=== PATIENT | female | born 1955 | race Hispanic/Latino ===

== ENCOUNTER 2017-02-19 08:40 | Inpatient (IN) | payer MEDICARE ==
[2017-02-19] VITALS (9 sets, daily range): BP systolic 117–145; BP diastolic 54–77; PULSE 74–95; RESP 12–18; O2SAT 93–99
[~2017-02-19] VITALS: Ht 152.4 cm; Wt 92.6 kg
[2017-02-19] MEDS: Lactated Ringer's 1,000 ML IV SCH ×3 (05:00→10:18)
[2017-02-19] MEDS: Vancomycin Inj 1,500 MG in 0.9% Sodium Chloride 500 ML IV SCH ×3 (06:00→09:15)
[2017-02-19] MEDS: CeFAZolin 2 Gm/50 mL D5W IV Premix IV SCH ×2 (06:00→11:00)
[~2017-02-19 08:40] MED LIST: ACET325T51 PO; ASPI325T32 PO; BUPR300T52 PO; Bupivacaine Liposome 1.3% 20 mL Inj INFILTRATE SCH; CHOL10008 PO; CITA20TA11 PO; ESTR42.52 VG; FERR-83 PO; GABA-502 PO; IBUP-1827 PO; INSLIS SUBQ; INSU100V7 SUBQ; KRIL500C PO; LEVO150T5 PO; LEVO175T5 PO; LISI40TA PO; METF1000 PO; PRV40T PO
[2017-02-19] MEDS ORDERED: Dexamethasone 4 mg/mL Inj IVPUSH PRN (09:55)
[2017-02-19] MEDS ORDERED: Lactated Ringer's 1,000 ML IV SCH (09:55)
[2017-02-19] MEDS ORDERED: MetoCLOpramide 5 mg/mL 2 mL Inj IVPUSH PRN (09:55)
[2017-02-19] MEDS ORDERED: Atropine 0.4 mg/mL Inj IVPUSH PRN (09:55)
[2017-02-19] MEDS ORDERED: Ondansetron 2 mg/mL 2 mL Inj IVPUSH PRN ×2 (09:55→12:55)
[2017-02-19] MEDS ORDERED: EPHEDrine Sulfate 50 mg/mL Inj IVPUSH PRN (09:55)
[2017-02-19] MEDS ORDERED: Labetalol 5 mg/mL 4 mL Inj IV PRN (09:55)
[2017-02-19] MEDS ORDERED: Lactated Ringer's 500 ML IV PRN (09:55)
[2017-02-19] MEDS ORDERED: Phenylephrine 10,000 mCg/mL Inj IVPUSH PRN (09:55)
--- NOTE | 2017-02-19 09:55 | PCM.HPANE ---
Patient Data Date of Service: Feb 19, 2017 Surgeon Admitting Provider: Attending Provider:Pierre Marcum DO Primary Care Physician:Mali Gipson Other Provider:Don Croft Anesthesia Reason for Visit Right Knee Arthritis Ht/WT & BMI Height (Feet): 5 Height (Inches): 0.00 Weight (Kilograms): 92.6 Body Mass Index 40.00 Allergies Coded Allergies: gemfibrozil (Verified Allergy, Severe, Rash, 02/11/17) simvastatin (Verified Allergy, Unknown, 02/11/17) Past Anesthesia History Anesthesia History: Denies:: Abnormal Airway, Anesthesia Reactions, Difficult Intubation, Fam Anesthesia Reaction, Fam Malignant Hypertherm, Malignant Hyperthermia Diabetes History Hx Diabetes?: Yes Type of Diabetes: Type II Glycemic Control: Insulin & Oral Medication Current Bedside Blood Glucose: 120 MRSA MRSA: No Medications Blood Thinner: Aspirin Hypertension Medication: Yes Home Meds Incl Beta Maria Elena: No Reported Medications Cholecalciferol (Vitamin D3) (Vitamin D3)1,000 Unit Tab.chew1,000 Unit PO DAILY 02/11/17 Pravastatin (Pravachol)40 Mg Cmkkkx58 Mg PO HS Ref 0 02/11/17 Metformin (Glucophage)1,000 Mg Tablet1,000 Mg PO BID Ref 0 02/11/17 Lisinopril 40 Mg Ooagsp14 Mg PO DAILY 30 Days Ref 0 02/11/17 Levothyroxine 175 Mcg Yqneiu730 Mcg PO saturday Ref 0 02/11/17 Levothyroxine 150 Mcg Ipwvbi216 Mcg PO mon thru sat Ref 0 02/11/17 Insulin Glargine (Lantus U100 Insulin Vial)100 Unit/Ml Vial35 Unit SUBQ BID #1 VIAL Ref 0 02/11/17 Krill Oil 500 Mg Tzktvfy087 Mg PO BID 02/11/17 Ibuprofen 600 Mg Zeeimk920 Mg PO TID PRN For Pain Ref 0 02/11/17 Insulin Human Lispro (HumaLOG U100 Insulin Vial)100 Unit/Ml Unit5-15 Unit SUBQ DIRECTED PRN blood sugar sliding scale #1 VIAL Ref 0 Check blood sugars before meals and at bedtime. Use correction factor only before meals. Blood Sugar Lispro Correction: <151, 0 units; 151-175, 1 unit; 176-200, 2 units; 201-225, 3 units; 226-250, 4 units; 251-275, 5 units; 276-300, 6 units; 301-325, 7 units; 326-350, 8 units; 351-375, 9 units; 376-400, 10 units; >400, 12 units. 02/11/17 Gabapentin 300 Mg Tonsacx382 Mg PO BID Ref 0 02/11/17 Ferrous Sulfate 325 Mg Buqdug973 Mg PO DAILY 30 Days Ref 0 02/11/17 Estradiol (Estrace)42.5 Gm Cream.appl1 G VG 2xweekly #1 TUBE Ref 0 02/11/17 Citalopram 20 Mg Qzzkwf25 Mg PO DAILY Ref 0 02/11/17 Bupropion ER 300 Mg Tab.er.60c606 Mg PO DAILY Ref 0 02/11/17 Aspirin 325 Mg Suhpiv351 Mg PO DAILY #1 BOTTLE 02/11/17 Acetaminophen 325 Mg Cauchx249 Mg PO Q4H PRN For Fever Ref 0 02/11/17 History History of ENT Problems?: No HEENT History: Denies:: Abnormal Airway Cataracts Difficult Intubation Dysphagia Glaucoma Hearing Problem Sinus Problem TMJ Denture Type: None Teeth Condition: Within Normal Limits Hx of Heart Problems?: Yes Cardiovascular History: Positive for:: Edema Hypertension Denies:: AICD Atrial Fibrillation Chest Pain Pacemaker Valvular Heart Disease Hx of Respiratory Problem?: Yes Respiratory History: Positive for:: Use of C-PAP Machine Denies:: Asthma COPD Cough Hemoptysis Oxygen Administration Pneumonia Tuberculosis Hx Neurologic Problems?: No Neurological History: Denies:: CVA Dementia Headaches Multiple Sclerosis Parkinson's Disease Seizures Hx of GI Problems?: Yes Other GI Pertinent History: hx of lap band Hx of Problems?: Yes Genitourinary History: Positive for:: Kidney Stones (one stone, passed spontaneously ) Denies:: Urinary Tract Infection Female Hx: Denies:: Currently (hysterectomy) Problems with Breasts? Skin History: Denies:: History Skin Disorders? Pressure Ulcers Hx Musculoskeletal Problems?: No Musculoskeletal History: Positive for:: Back Injury (lami hx) Degenerative Joint Osteoarthritis Denies:: Fibromyalgia Joint Replacement Systemic Lupus Hx of Psycho/Social Problems?: No Psycho Social History: Positive for:: Anxiety Denies:: Hx Depression Hx Surgeries?: Yes (HYSTERECTOMY,D&C'S,REPAIR LACERATION OF DOG BITE) Hx Any Other Health Problems?: Yes Other History: Positive for:: Endocrine Disease Thyroid Disease Denies:: Cancer Hospitalization History Blood Transfusions: Positive for:: Accept Blood Products? Denies:: Blood Transfusions Hx Diabetes: YesBedside Blood Glucose: 120 Hx Alcohol Use: YesAlcoholic Drinks Per Day: one drink weeklyHx Substance Use : Yes (topical marijuana oil for pain, rarely) Smoking Status: Former Smoker Have You Smoked inLast 12 mo: No Stop/Bang Treated for Sleep Apnea?: Yes Do You Have a CPAP Machine?: Yes S-Snoring: Do You Snore Loudly: No T-Tired: feel tired, fatigued: No O-Obsered: Observed not breath: No P-Blood Pressure: treated: Yes B- Body Mass Index > 35 kg/m2: Yes A- Age over 50: Yes N- Neck Large Circumference: Yes G- Gender Male: No JODY Total Score: 4 Risk Assessment Category Category 1A: Patient has history of documented sleep apnea, and HAS NOT received any narcotic, sedative or anesthesia administration during this stay. Category 1B: Patient has history of documented sleep apnea, and HAS received any narcotic , sedative or anesthesia administration during this stay Category 2: Patient has SUSPECTED Obstructive Sleep Apnea, and HAS received any narcotic , sedative or anesthesia administration during this stay. Category 3: Patient has SUSPECTED Obstructive Sleep Apnea and HAS NOT received narcotic, sedative or anesthesia administration during this stay. Category 4: Outpatient in Procedural Areas with known sleep apnea or who screen positive for High Risk via the STOP/BANG questionnaire. Exam Exam Vital Signs Vital Signs Date Time Temp Pulse Resp B/P Pulse Ox O2 Delivery O2 Flow Rate FiO2 02/19/17 09:10 CPAP/BIPAP 02/19/17 09:10 36.5 74 18 117/54 99 Room Air General Appearance: Alert, Oriented X3, Cooperative, No Acute Distress HEENT/AIRWAY: MP 3 Lungs: Normal Air Movement Heart: Exam Unremarkable Meds/Labs/Diagnostics Admission Meds Current Medications Lactated Ringer's 1,000 ml @ 120 mls/hr Q8H20M IV Last administered on 08:45; Start 02/19/17 at 05:00; Stop 02/19/17 at 13:19 Vancomycin HCl/ Sodium Chloride (Vancocin Inj/ Normal Saline) 500 ml @ 333.333 mls/hr PREOP IV Last administered on 02/19/17 09:14; Start 02/19/17 at 06:00; Stop 02/19/17 at 17:00 Bedside Blood Glucose: 120 Plan Impression Patient chart reviewed, patient interviewed and anesthestic plan with risks, benefits, and alternatives discussed, and informed consent obtained. NPO per Anesth. Guidelines: Yes ASA Physical Status: ASA2 Mod Systemic Disease Anesthetic Plan: Regional Block, SAB Bene/Risks/Altern/Consents: Yes HP Complete Prior to Induction: Yes Osman Chapman MD Feb 19, 2017 09:55
[2017-02-19] MEDS ORDERED: 0.9% Sodium Chloride 10 mL Inj INFILTRATE ONE (11:26)
[2017-02-19] MEDS ORDERED: Bupivacaine Liposome 1.3% 20 mL Inj INFILTRATE ONE (11:26)
[2017-02-19] MEDS ORDERED: Bupivacaine-MPF 0.5% W/EPI 30 mL Inj INFILTRATE ONE (11:26)
[2017-02-19] MEDS ORDERED: Glucose 40% Oral Gel 15 Gm Tube PO PRN (12:55)
[2017-02-19] MEDS ORDERED: diphenhydrAMINE 25 mg Capsule PO PRN (12:55)
[2017-02-19] MEDS ORDERED: Magnesium Hydroxide 10 mL Oral Concentration PO PRN (12:55)
[2017-02-19] MEDS ORDERED: HYDROmorphone 0.5 mg/0.5 mL iSecure Syringe IVPUSH PRN (12:55)
[2017-02-19] MEDS ORDERED: Polyethylene Glycol (PEG) 17 Gm Powder PO PRN (12:55)
[2017-02-19] MEDS ORDERED: hydrOXYzine Pamoate 25 mg Capsule PO PRN (12:55)
[2017-02-19] MEDS ORDERED: Sodium Biphos-Phos 133 mL Enema RECTAL PRN (12:55)
--- NOTE | 2017-02-19 12:55 | PCM.ANEP1 ---
Post Anesthesia PACU Phase 1 Assessment Date of Service: Feb 19, 2017 Vital Signs Vital Signs Date Time Temp Pulse Resp B/P Pulse Ox O2 Delivery O2 Flow Rate FiO2 02/19/17 09:10 CPAP/BIPAP 02/19/17 09:10 36.5 74 18 117/54 99 Room Air Anesthetic Administered: GA, Regional Block Level of Alertness: Awake, talking OLSON's with Equal Strength: Yes Pain: Yes Pain Scale Score: 3 Nausea or Vomiting: No CV Function & Hydration Stable: Yes Airway Device: Oxygen Delivery: Simple Mask Lungs: Normal Air Movement PACU Phase 2 Assessment Complications: No Follow up Care: N/A Patient Instructions Provided: N/A Osman Chapman MD Feb 19, 2017 12:55
[2017-02-19] MEDS: fentaNYL-PF 50 mCg/mL 2 mL Inj IVPUSH PRN ×2 (13:00→13:20)
[2017-02-19] MEDS: HYDROmorphone 1 mg/mL Inj IVPUSH PRN ×2 (13:00→13:20)
--- NOTE | 2017-02-19 13:49 | DRSVH ---
PROCEDURE: X-RAY RIGHT KNEE, ONE OR TWO VIEWS ([id number]) INDICATIONS: s/p right TKA TECHNIQUE: 2 view(s) of the knee acquired. COMPARISON: None. FINDINGS: Bones: Patient is status post knee joint arthroplasty. Hardware components are in expected position s. Visualized bony structures are intact. Soft tissues: Overlying postoperative changes are noted. IMPRESSION: Expected postoperative alignment Dictated by: Rocky Ortiz M.D. on 02/19/2017 at 13:47 Approved by: Rocky Ortiz M.D. on 02/19/2017 at 13:48
[2017-02-19] MEDS ORDERED: Propofol 10,000 mCg/mL 20 mL Inj ONE (14:30)
[2017-02-19] MEDS ORDERED: Ondansetron 2 mg/mL 2 mL Inj ONE (14:30)
[2017-02-19] MEDS ORDERED: EPHEDrine/NS 5 mg/mL 5 mL Syringe ONE (14:30)
[2017-02-19] MEDS ORDERED: fentaNYL-PF 50 mCg/mL 2 mL Inj ONE (14:30)
[2017-02-19] MEDS: 0.9% Sodium Chloride 1,000 ML IV SCH (15:17)
--- NOTE | 2017-02-19 16:01 | NUR ---
Evaluation completed. Please go to "Notes" then click on "Assessments and Notes" (bottom left corner of screen). Then select appropriate discipline tab on top of screen.
[2017-02-19] MEDS: Sodium Chloride LOK Flush 10 mL Syringe IV SCH (16:30)
[2017-02-19] MEDS: Acetaminophen IV 1,000 MG in IV Premix 1 EACH IV SCH (17:42)
[2017-02-19] MEDS: CeFAZolin Inj 2 GM in IV Premix 1 EACH IV SCH (18:06)
--- NOTE | 2017-02-19 19:16 | NUR ---
POST -OP Patient arrived to [facility] at 1430, from OR where she had right TKA. Cooper wrap c/d/i, no drain. Love catheter, NS 80, LOC x3, PT in to work with patient. Pain controlled with IVP Dilaudid 0.5 x1, Toradol 15mg x1 and IV Tylenol. Post op antibiotic given, BG 216, VSS, and Love to be removed today.
[2017-02-19] MEDS ORDERED: Non-Formulary Medication (Levothyroxine 175 MCG) PO SCH (19:25)
--- NOTE | 2017-02-19 19:33 | OP ---
[address] [address] OPERATIVE REPORT PATIENT: RO MCDONALD : 1955 MR#: [id number] ADMIT: 02/19/2017 JOB ID: [id number] DATE OF SURGERY: 02/19/2017 SURGEON: Pierre Marcum DO FILM OR VIDEOTAPE EDITOR: Tati Blackmon PA-C PREOPERATIVE DIAGNOSIS(ES): Right knee degenerative joint disease. POSTOPERATIVE DIAGNOSIS(ES): Right knee degenerative joint disease. PROCEDURE: Right total knee arthroplasty. INDICATIONS: The patient is a 61-year-old female with right knee severe degenerative arthritis who has failed conservative measures and wished to proceed with a right total knee arthroplasty. We discussed the risks, benefits, and possible complications of surgery. All questions were answered. She wished to proceed. A neurosurgical nurse practitioner was required for the successful completion of this procedure. PROCEDURE IN DETAIL: The patient is brought to the operating room. She was given a preoperative antibiotic, 1 g of TXA, and adductor canal block. The right lower extremity was sterilely prepped and draped and an incision was made over the anteromedial knee. Dissection was carefully carried through subcutaneous tissue. Electrocautery was used for hemostasis as well as the tourniquet. A split was then made in the quad tendon leaving a cuff of tissue for repair. This was taken along the medial retinaculum. The patella was everted and the femur was instrumented with an intramedullary cornel, and the distal femoral cutting block was placed with a 5 degree distal valgus cut angle and 10 mm distal femoral resection planned. The cut was performed and the tibia was then addressed with the extramedullary tibial cutting guide placed parallel to the long axis of the tibia. This was pinned into position and the cut was performed and completed with an osteotome. The tibia was sized and felt to be a size 3. The femur was sized and felt to be a size 4, and the femoral cuts were then performed with 3 degrees of external rotation. The box cut was then performed of the knee was then trialed with various polys. Eventually the size 8 poly seemed to work quite nicely, allowing full flexion and full extension with equal gaps medially and laterally. The patella was resurfaced with a free hand type technique, cut from initial thickness of 22 to a thickness of 14. A 32 mm patellar button was chosen, drilled for trial and had excellent tracking. The femur was drilled. The tibia was drilled and punched. The bony surfaces were washed and dried, and the components were then cemented into position beginning with the DePuy Attune fixed bearing 3 tibia followed by the DePuy Attune posterior stabilized 4 femur, the 32 mm patellar button, and an 8 mm poly was inserted. All excess cement was removed. The leg was held in full extension while the cement was allowed to polymerize. The tourniquet was then let down and the wound was irrigated and then closed with #1 Surgilon to repair the quad tendon and medial retinaculum. The subcu was closed with 2-0 running V-Loc and the skin was closed with a running subcuticular 3-0 V-Loc. A mixture of Exparel, Marcaine and saline was added as an adjunct local anesthetic. Sterile dressings were applied. Patient tolerated the procedure well. Blood loss was 50 cc. POSTOPERATIVE PROTOCOL: Have the patient weightbear to tolerance. Use walker for ambulation. Will plan to use Lovenox for DVT prophylaxis.
[2017-02-19] MEDS ORDERED: Pt Own Med->Topical Med VAGINAL SCH (20:10)
[2017-02-19] MEDS: Senna-Docusate 8.6-50 mg Tablet PO SCH (20:19)
[2017-02-19] MEDS: HYDROcodone-APAP 5-325 mg Tablet PO PRN ×2 (20:21→22:09)
[2017-02-19] MEDS ORDERED: Non-Formulary Medication (Metformin (Glucophage) 1,000 MG) PO SCH (20:30)
[2017-02-19] MEDS: Insulin GLARgine 100 Unit/mL Syringe SUBQ SCH (21:51)
[2017-02-19] MEDS: Insulin LISPRO 300 Unit/3 mL Inj SUBQ PRN (21:59)
[2017-02-20] MEDS: Sodium Chloride LOK Flush 10 mL Syringe IV SCH ×3 (00:30→17:17)
[2017-02-20] MEDS: Acetaminophen IV 1,000 MG in IV Premix 1 EACH IV SCH ×4 (00:44→11:17)
[2017-02-20] MEDS: CeFAZolin Inj 2 GM in IV Premix 1 EACH IV SCH (00:45)
[2017-02-20] MEDS: 0.9% Sodium Chloride 1,000 ML IV SCH ×2 (01:21→13:51)
[2017-02-20] MEDS: HYDROcodone-APAP 5-325 mg Tablet PO PRN ×2 (02:56→08:11)
--- NOTE | 2017-02-20 03:49 | NUR ---
Pain management Patient c/o of pain, medication effective, at this time. Cooperative with care. RT assisted with CPAP. Bed in low position, call light within reach, intentional rounding. Care continues. Addendum: 02/20/17 at 0624 by EUNICE LOERA RN INSULIN According to patient Humalog coverage is as follows: 10 units base and an additional unit for every 20 mg/dl. For example a BS reading of 183 mg/dl would be the base 10 + 9 = 19 units of coverage.
[2017-02-20 05:55] LABS: BASOPHILS % (AUTO) 0.2 % (0-3); EOSINOPHILS % (AUTO) 0.3 % (0-5); MONOCYTES % (AUTO) 10.8 % (4-12); Mean Corpuscular Hemoglobin 26.6 pg (27.0-35.0); Mean Corpuscular Volume 80.5 fL (81-100); NEUTROPHILS % (AUTO) 68.5 % (40-74); Platelet Count 322 bil/L (150-400)
[2017-02-20 06:10] VITALS: BP 116/65; PULSE 97; O2SAT 97
[2017-02-20] MEDS ORDERED: buPROPion XL 300 mg ER24 Tablet PO SCH (08:30)
[2017-02-20] MEDS: Insulin LISPRO 300 Unit/3 mL Inj SUBQ PRN ×3 (09:13→18:39)
[2017-02-20] MEDS: Insulin GLARgine 100 Unit/mL Syringe SUBQ SCH ×2 (09:13→21:29)
[2017-02-20] MEDS: Senna-Docusate 8.6-50 mg Tablet PO SCH ×2 (09:14→21:19)
--- NOTE | 2017-02-20 09:39 | PCM.PNORTH ---
Subjective Date of Service: Feb 20, 2017 Visit Information: Reason for Visit Right Knee Arthritis Surgery/Surgery Date RIGHT TOTAL KNEE 02/19/17 Post-Op Day # 1 Date of Admission: Feb 19, 2017 at 14:29 Hospital Day # Subjective Patient complains of mild incisional pain. She feels that some of the block is still in place. She did get out of bed yesterday. Postop General: No Shortness of Breath, No Chest Pain, Good Appetite Objective Exam Objective Patient is seen in bed Vital Signs and I/O Vital Sign - Last Date Time Temp Pulse Resp B/P Pulse Ox O2 Delivery O2 Flow Rate FiO2 02/20/17 06:10 36.5 97 116/65 97 Room Air 02/19/17 23:56 0.00 02/19/17 13:30 15 Intake and Output 02/19/17 02/19/17 02/20/17 Cumulative From/Thru 15:00 23:00 07:00 02/11/17 16:39 - 02/20/17 06:39 Intake Total 1670 ml 950 ml 1884 ml 4504 ml Output Total 200 ml 600 ml 2100 ml 2900 ml Balance 1470 ml 350 ml -216 ml 1604 ml Intake Oral 950 ml 800 ml 1750 ml IV Total 1670 ml 1084 ml 2754 ml Output Urine Total 150 ml 600 ml 2100 ml 2850 ml Estimated Blood Loss 50 ml 50 ml # Bowel Movements 0 0 0 Lab & Micro Results Laboratory Tests Test 02/20/17 05:25 White Blood Count 13.1th/mm3 (3.8-10.1) Red Blood Count 4.06mil/mm3 (3.90-5.20) Hemoglobin 10.8g/dL (12.0-15.6) Hematocrit 32.7% (35.0-46.0) Mean Corpuscular Volume 80.5fL (81-100) Mean Corpuscular Hemoglobin 26.6pg (27.0-35.0) Mean Corpuscular Hemoglobin Concent 33.0% (32.0-37.0) Red Cell Distribution Width 14.9% (12.3-15.4) Platelet Count 322bil/L (150-400) Neutrophils (%) (Auto) 68.5% (40-74) Lymphocytes (%) (Auto) 19.8% (14-46) Monocytes (%) (Auto) 10.8% (4-12) Eosinophils (%) (Auto) 0.3% (0-5) Basophils (%) (Auto) 0.2% (0-3) Sodium Level 134mEq/L (134-144) Potassium Level 4.6mEq/L (3.5-5.2) Chloride Level 98mEq/L (97-108) Carbon Dioxide Level 22mmol/L (18-29) Blood Urea Nitrogen 14mg/dL (8-27) Creatinine 0.92mg/dL (0.57-1.00) Estimat Glomerular Filtration Rate 89mL/min (>59) Glucose Level 184mg/dL (60-99) Calcium Level 8.7mg/dL (8.5-10.1) Result Diagram: 02/20/1752402/20/17524 General Appearance: Alert, Oriented X3, Cooperative, No Acute Distress Extremities: Distal Pulses Palpable, No Compartment Syndrom Noted, Thigh & Calf Soft/Nontender Postop Sensory Motor: Distal Motor Intact, Distal Sensation Intact, NVI Distally SURGICAL WOUND : Wound Location/Description Surgical dressing is clean, dry and intact Activity: Activity per PT Catheters: None Assessment & Plan Impression POD #1 status post right TKA Problems: Plan Weightbearing: Weightbearing as tolerated with walker DVT prophylaxis: Lovenox 40 mg subcutaneous 2 weeks followed by aspirin 325 mg twice a day 4 weeks Physical therapy for transfers, progressive ambulation, therapeutic exercise Wound care: PA will change dressing on postop day 2 Discharge plan: Discharge home in 1-2 days. Start outpatient physical therapy next week Follow-up plan: In 2 weeks at [facility] with PA for wound check and at [address] Marcum with x-rays Pain Management: Toradol, Minter, Dilaudid IV VTE Prophylaxis: Sub-Q Enoxaparin, SCDs Resuscitation Status: CPR: Attempt Resuscitation Shallow WaterTati Garza PA-C Feb 20, 2017 09:39
[2017-02-20 09:50] VITALS: BP 111/68; PULSE 95; RESP 18; O2SAT 97
[2017-02-20] MEDS: buPROPion XL 300 mg ER24 Tablet PO SCH (11:17)
--- NOTE | 2017-02-20 15:41 | NUR ---
Social Work- Initial Assessment/ Readiness for Discharge/ Multidisciplinary Rounds Data: See Initial Assessment and Advance Directive Intervention for additional information. Pt discussed in rounds. Pt is POD 1. Pt is not ready for discharge at this time. No SW needs identified at d/c in rounds. PT walked pt 75 feet and recommending outpt PT. Pt is a 61 year old admitted 02/19/17 for right TKA per H&P. Pt's insurance is [facility]. Pt's PCP is CARLI Navarro. Pt's readmit risk score is 3. SW met with pt at bedside regarding discharge plan, SW role explained. Pt alert and oriented x3. Pt's capacity for self-care assessed. Pt resides in [place] in a home with spouse. Pt is independent with ADLs and self-care. Pt uses no DME at baseline but has a cane and walker available for use. Pt drives. Pt has no history with HH services. Pt has no history with SNF services. Pt has DPOA, SW requested that pt bring in copy of DPOA. Pt reports that her is DPOA. Pt to discharge home with outpt PT services. SW provided Discharge planning Checklist and requested that pt contact [facility] if needs identified. SW provided phone number and plan on whiteboard. Pt agreeable. Pt to discharge home with to transport and outpt PT. SW will continue to follow. Assessment: Pt who is independent at baseline. Plan: Pt to discharge home with to transport and outpt PT. No d/c needs identified. SW will continue to follow. ANTONIO Lundy Addendum: 02/20/17 at 1543 by JAKE CAMARGO Amended: Links added.
[2017-02-20 20:13] VITALS: BP 155/66; PULSE 85; RESP 16; O2SAT 99
[2017-02-21] MEDS: Sodium Chloride LOK Flush 10 mL Syringe IV SCH ×3 (01:41→15:18)
--- NOTE | 2017-02-21 01:59 | NUR ---
Pain Patient stated that her pain was increased today due to being up and ambulating quite a bit. Nurse trying to keep patient on a regular schedule with pain medication, to keep pain manageable. Patient up to bathroom independent with FWW. Stand by assist. Patient sleeping with home CPAP on. Vitals stable. Care continues.
[2017-02-21] MEDS: 0.9% Sodium Chloride 1,000 ML IV SCH ×2 (02:21→08:36)
[2017-02-21 05:19] VITALS: BP 149/74; PULSE 75; RESP 18; O2SAT 98
[2017-02-21 05:33] LABS: BASOPHILS % (AUTO) 0.3 % (0-3); EOSINOPHILS % (AUTO) 0.4 % (0-5); MONOCYTES % (AUTO) 10.2 % (4-12); Mean Corpuscular Hemoglobin 26.7 pg (27.0-35.0); Platelet Count 291 bil/L (150-400)
[2017-02-21] MEDS: Senna-Docusate 8.6-50 mg Tablet PO SCH (08:29)
[2017-02-21 08:30] VITALS: BP 125/69; PULSE 75; RESP 20; O2SAT 97
[2017-02-21] MEDS: buPROPion XL 300 mg ER24 Tablet PO SCH (08:31)
[2017-02-21] MEDS: Insulin GLARgine 100 Unit/mL Syringe SUBQ SCH (08:32)
[2017-02-21] MEDS: Insulin LISPRO 300 Unit/3 mL Inj SUBQ PRN ×2 (08:35→13:00)
--- NOTE | 2017-02-21 10:18 | PCM.PNORTH ---
Subjective Date of Service: Feb 21, 2017 Visit Information: Reason for Visit Right Knee Arthritis Surgery/Surgery Date RIGHT TOTAL KNEE 02/19/17 Post-Op Day # 2 Date of Admission: Feb 19, 2017 at 14:29 Hospital Day # Subjective Patient is progressing well with therapy. She ambulated 70 feet yesterday. She has been up multiple times independently to the bathroom. Postop General: No Shortness of Breath, No Chest Pain, Good Appetite Pain Management: PO, IV Push Objective Exam Objective Patient is seen sitting up in bed Vital Signs and I/O Vital Sign - Last Date Time Temp Pulse Resp B/P Pulse Ox O2 Delivery O2 Flow Rate FiO2 02/21/17 05:19 37.2 75 18 149/74 98 Room Air 02/20/17 21:36 0.00 Intake and Output 02/20/17 02/20/17 02/21/17 Cumulative From/Thru 15:00 23:00 07:00 02/11/17 16:39 - 02/21/17 06:00 Intake Total 800 ml 300 ml 5604 ml Output Total 1100 ml 1050 ml 5050 ml Balance -300 ml -750 ml 554 ml Intake Oral 800 ml 300 ml 2850 ml IV Total 2754 ml Output Urine Total 1100 ml 1050 ml 5000 ml Estimated Blood Loss 50 ml # Bowel Movements 0 0 0 Lab & Micro Results Laboratory Tests Test 02/21/17 04:50 White Blood Count 11.9th/mm3 (3.8-10.1) Red Blood Count 4.05mil/mm3 (3.90-5.20) Hemoglobin 10.8g/dL (12.0-15.6) Hematocrit 32.0% (35.0-46.0) Mean Corpuscular Volume 79.0fL (81-100) Mean Corpuscular Hemoglobin 26.7pg (27.0-35.0) Mean Corpuscular Hemoglobin Concent 33.8% (32.0-37.0) Red Cell Distribution Width 14.6% (12.3-15.4) Platelet Count 291bil/L (150-400) Neutrophils (%) (Auto) 66.0% (40-74) Lymphocytes (%) (Auto) 22.6% (14-46) Monocytes (%) (Auto) 10.2% (4-12) Eosinophils (%) (Auto) 0.4% (0-5) Basophils (%) (Auto) 0.3% (0-3) Result Diagram: 02/21/17 0450 02/20/17 0525 General Appearance: Alert, Oriented X3, Cooperative, No Acute Distress Extremities: Distal Pulses Palpable, No Compartment Syndrom Noted, Thigh & Calf Soft/Nontender Postop Sensory Motor: Distal Motor Intact, Distal Sensation Intact, NVI Distally SURGICAL WOUND : Wound Location/Description Right knee: Surgical dressing is removed. The wound is well approximated and Steri-Strips are intact. There is no erythema or drainage present. The knee was cleansed with hydrogen peroxide. Dressing was changed to Silverlon and ABD pad held in place with an Cooper wrap. Cooper wrap will be removed when ZACH hose are applied. Activity: Activity per PT Catheters: None Assessment & Plan Impression POD #2 Right TKA Problems: Plan Weightbearing: Weightbearing as tolerated with walker DVT prophylaxis: Lovenox 40 mg subcutaneous 10 more days followed by aspirin 325 mg twice a day 4 weeks Physical therapy for transfers, progressive ambulation, therapeutic exercise Wound care: Dressing change to Silverlon, ABD and Cooper wrap. ZACH hose are ordered to be applied prior to discharge Discharge instructions are reviewed. Discharge plan: Discharge home today. Start outpatient physical therapy next week Follow-up plan: In 2 weeks at [facility] with MARIA DEL ROSARIO for wound check and at [address] Marcum with x-rays Pain Management: [place], Toradol VTE Prophylaxis: Sub-Q Enoxaparin, SCDs Resuscitation Status: CPR: Attempt Resuscitation Tati Blackmon PA-C Feb 21, 2017 10:17
--- NOTE | 2017-02-21 10:19 | PCM.DIORTH ---
Ortho Discharge Instruction Date of Service: Feb 21, 2017 Dates of Hospitalization Date of Hospital Admission Feb 19, 2017 at 14:29 Providers Admitting Physician: Pierre Marcum DO Primary Care Physician: Mali Gipson Attending Physician: Pierre Marcum DO Diet Discharge Diet: Diabetic Activity Discharge Activity-General: Try not to overdue, Be up and about, Balance rest and activity, Elevate & ice extremity (6-10 times a day) Right Lower Extremity: Weight Bearing as tolerated Discharge Assist Device: Front Wheeled Walker Dressing and Incisional Care Discharge Dressing Care: Keep dressing clean, dry & intact Discharge Hygiene: May shower (see instructions below) Additional Instructions Discharge Instructions Weightbearing: Weightbearing as tolerated with wheeled walker DVT prophylaxis: Lovenox 40 mg subcutaneous 10 more days followed by aspirin 325 mg twice a day 4 weeks Wound care: change every 2-3 days. Wear thigh-high ZACH hose for 4 weeks on right leg, and for 2 weeks on left leg. Please remove Cooper wrap from right leg when wearing ZACH hose. Start outpatient physical therapy next week Activity: get up every hour you are awake and do some exercise for your knee. Either walking or exercises or bending and straightening. You may push it with bending, it will be sore but you will not harm it by bending. On Saturday, the patient may shower if the wound has no drainage present. Wound may be uncovered to shower. Let soap and water run over the wound, pat dry and apply a new dressing. Dressing change: Get the silver dressing wet with 1 syringe of saline, lay the silver side down against the skin over the incision, and cover with big square pad. Elastic stockings or Cooper wrap will hold the dressing in place Follow Up Plan Follow Up Plan Follow-up plan: In 2 weeks at [facility] with MARIA DEL ROSARIO for wound check and at [address] Marcum with x-rays Call your provider for: Fever, Chills, Shortness of breath, Vomitting, Drainage at incision, Wound redness (that is psreading), Increasing pain (for no reason) Tati Blackmon PA-C Feb 21, 2017 10:19
--- NOTE | 2017-02-21 10:33 | PCM.DC.ORT ---
Discharge Summary Date of Service: Feb 21, 2017 Date of Hospital Admission: Feb 19, 2017 at 14:29 Date of Surgery: Feb 19, 2017 Date of Discharge: Feb 21, 2017 Reason for Hospitalization: Right knee arthritis Procedures Performed: Right total knee arthroplasty Hospital Course: The patient was admitted to the hospital on 02/19/2017 and underwent the above procedure. Antibiotic prophylaxis consisting of Ancef and vancomycin. The surgeon was Dr. Marcum. A Love was placed perioperatively. Patient tolerated the procedure well and was transferred to recovery room in stable condition. Love was discontinued on postop day 1. Patient had physical therapy to work on ambulation and transfers. Weightbearing as tolerated with walker. Pain was managed with Dilaudid, [place], Vistaril, Toradol. DVT prophylaxis: Lovenox, SCDs , ZACH hose. Patient progressed well with physical therapy and on POD-2 was discharged home. Follow-up: at [facility] 2 weeks postop for wound check and at [address] Marcum with x-ray Diagnosis at Time of Discharge Status post right TKA Problems: Disposition: Discharged home in stable condition Discharge Instructions: Discharge Diet: Diabetic Discharge Activity-General: Try not to overdue, Be up and about, Balance rest and activity, Elevate & ice extremity (6-10 times a day) Right Lower Extremity: Weight Bearing as tolerated Discharge Assist Device: Front Wheeled Walker Dressing and Incisional Care Discharge Dressing Care: Keep dressing clean, dry & intact Discharge Hygiene: May shower (see instructions below) Additional Instructions Weightbearing: Weightbearing as tolerated with wheeled walker DVT prophylaxis: Lovenox 40 mg subcutaneous 10 more days followed by aspirin 325 mg twice a day 4 weeks Do not take NSAID's or aspirin while using Lovenox Wound care: change every 2-3 days. Wear thigh-high ZACH hose for 4 weeks on right leg, and for 2 weeks on left leg. Please remove Cooper wrap from right leg when wearing ZACH hose. Start outpatient physical therapy next week Activity: get up every hour you are awake and do some exercise for your knee. Either walking or exercises or bending and straightening. You may push it with bending, it will be sore but you will not harm it by bending. On Saturday, the patient may shower if the wound has no drainage present. Wound may be uncovered to shower. Let soap and water run over the wound, pat dry and apply a new dressing. Dressing change: Get the silver dressing wet with 1 syringe of saline, lay the silver side down against the skin over the incision, and cover with big square pad. Elastic stockings or Cooper wrap will hold the dressing in place Bupropion ER (Bupropion ER) 300 Mg Tab.er.24h 300 MG PO DAILY Cholecalciferol (Vitamin D3) (Vitamin D3) 1,000 Unit Tab.chew 1,000 UNIT PO DAILY Citalopram (Citalopram) 20 Mg Tablet 20 MG PO DAILY Enoxaparin Sodium (Enoxaparin Sodium) 40 Mg/0.4 Ml Syringe 40 MG SUBQ Q24 Estradiol (Estrace) 42.5 Gm Cream.appl 1 G VG 2xweekly Ferrous Sulfate (Ferrous Sulfate) 325 Mg Tablet 325 MG PO DAILY Gabapentin (Gabapentin) 300 Mg Capsule 900 MG PO BID Hydrocodone-Acetaminophen 5-325 mg (Hydrocodone-Acetaminophen 5-325 mg) 1 Each Tablet 1-2 TABLET PO Q4H PRN PRN For Moderate Pain Hydroxyzine Pamoate (HydrOXYzine Pamoate) 25 Mg Capsule 25 MG PO Q6H PRN PRN For Spasm and/or Restlessness Insulin Glargine (Lantus U100 Insulin Vial) 100 Unit/Ml Vial 35 UNIT SUBQ BID Insulin Human Lispro (HumaLOG U100 Insulin Vial) 100 Unit/Ml Unit 5-15 UNIT SUBQ DIRECTED PRN PRN blood sugar sliding scale Check blood sugars before meals and at bedtime. Use correction factor only before meals. Blood Sugar Lispro Correction: <151, 0 units; 151-175, 1 unit; 176-200, 2 units; 201-225, 3 units; 226-250, 4 units; 251-275, 5 units; 276-300 , 6 units; 301-325, 7 units; 326-350, 8 units; 351-375, 9 units; 376-400, 10 units; >400, 12 units. Levothyroxine (Levothyroxine) 150 Mcg Tablet 150 MCG PO mon thru sat Levothyroxine (Levothyroxine) 175 Mcg Tablet 175 MCG PO saturday Lisinopril (Lisinopril) 40 Mg Tablet 40 MG PO HS Metformin (Glucophage) 1,000 Mg Tablet 1,000 MG PO BID Pravastatin (Pravachol) 40 Mg Tablet 40 MG PO HS [place], Tati M PA-C Feb 21, 2017 10:33
[2017-02-21] MEDS ORDERED: HYDR-3797 PO (10:37)
[2017-02-21] MEDS ORDERED: HYDR-4003 PO (10:37)
[2017-02-21] MEDS ORDERED: ENOX40DI8 SUBQ (10:37)
--- NOTE | 2017-02-21 11:47 | NUR ---
Social Work- Discharge/Multidisciplinary Round Data: EMR reviewed. Pt is on day 2 of hospitalization. Pt discussed in multidisciplinary rounds, pt is medically ready for d/c. SW met with pt at bedside regarding d/c plan. Pt confirms that her spouse will pick her up today around 1630. No discharge needs. Assessment: Pt who is independent at baseline and will do outpt PT. Plan: Pt confirms that her spouse will pick her up today around 1630. No discharge concerns or needs. Raquel Lan MSW
[2017-02-21] MEDS ORDERED: OXYC5TAB72 PO (13:34)
--- NOTE | 2017-02-21 15:52 | NUR ---
DISCHARGE Oxicodone 10 mg PO has been effective for pain control. Patient rated her pain as 4/10, which is tolerable for her. Tolerating liquids PO and her diet well. Denies nausea. No emesis noted. Denies SOB. Patient has been ambulating with SBA and the FWW. Tolerated activity fairly. Voiding without any problems. Compression stockings are on. Dressing is CDI. IV saline lock d/cd. Discharge instructions, care notes and prescription was given to the patient and she verbalized understanding. Discharged to home with her friend and all her personal belongings. (Copy of D/C is in the chart).
--- NOTE | 2017-02-22 14:58 | PATH ---
SURGICAL PATHOLOGY Attending Physician:Pierre Marcum DO CASE STATUS: Signed Out PATIENT NAME: RO MCDONALD PID: [id number] : 1955 DATE COLLECTED:02/19/2017 22:40 SPECIMEN: [employer] CLINICAL HISTORY: RIGHT KNEE ARTHRITIS 1). 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 SEE COMMENT. - SCATTERED LYMPHOID AGGREGATES PRESENT WITHIN THE SUBSYNOVIAL TISSUE. - NO SIGNIFICANT NEUTROPHILIC INFLAMMATION. - NEGATIVE FOR NEOPLASM. COMMENT: The histologic features are not entirely specific but can be seen in patients with degenerative joint disease. ICD10 M19.9 GROSS DESCRIPTION: The specimen is received in one formalin filled container labeled with the patient's name, sublabeled "right knee synovium" and consists of 2 pink to yellow rose extremely friable and fragmented and portions of tissue which aggregate to 2.6 x 1.4 x 0.8 CM. The specimen is sectioned into 6 total pieces and entirely submitted in 2 cassettes. 02/19/2017DC MICRO DESCRIPTION: See diagnosis. ICD-9 CODES: CPT CODES: 1: 48115 Electronically Signed Out Jose Armando Loomis MD [facility] Pathology [facility] [address], [place] [address] Technical component performed at [facility], [facility] [address], [place], [address]
== END 2017-02-21 16:00 | disposition home or self-care (01) | DRG 470 ==
LOC: SAS 08:40 → OSC 14:29
PROVIDERS: ADMIT Orthopaedic Surgery; ATTEND Orthopaedic Surgery
PROC: 0SRC0J9 Replacement of Right Knee Joint with Synthetic Substitute, Cemented, Open Approach (ICD-10-PCS; principal; 2017-02-19 10:30)
DX: M17.11 Unilateral primary osteoarthritis, right knee (principal); E11.65 Type 2 diabetes mellitus with hyperglycemia; Z79.4 Long term (current) use of insulin; I10 Essential (primary) hypertension; E03.9 Hypothyroidism, unspecified; Z87.891 Personal history of nicotine dependence